=== PATIENT | male | born 1960 | race Two or more races ===

== ENCOUNTER 2017-08-27 19:34 | Inpatient (IN) | payer OTHER ==
[~2017-08-27] VITALS: Ht 177.8 cm; Wt 76.2 kg
--- NOTE | 2017-08-27 19:36 | NUR ---
PT BIBRA FROM SNF TO ER BED 10. SENT BY PMD FOR ABNORMAL LABS. PT IS VENT PT W/ CURRENT SETTINGS AC 14 TV 550 FI02 40% PEEP 5. G TUBE NOTED. F/C NOTED. PLACED ON MONITOR W/ STABLE VITALS. AWAITING MD MARSHALL.
[2017-08-27 20:00] VITALS: BP 153/81
--- NOTE | 2017-08-27 20:23 | NUR ---
RADIOLOGY AT BEDSIDE FOR CHEST XRAY.
--- NOTE | 2017-08-27 20:30 | NUR ---
DR BLANTON AT BEDSIDE FOR EVAL.
[2017-08-27 20:35] LABS: BASOPHILS # (AUTO) 0.3 /CMM (0.0-0.2); EOSINOPHILS # (AUTO) 1.7 /CMM (0.0-0.7); EOSINOPHILS % (AUTO) 6.2 % (0.0-6.0); HEMATOCRIT 29 % (39-51); HEMOGLOBIN 10.3 g/dL (13.5-17.5); LYMPHOCYTES # (AUTO) 2.7 /CMM (0.8-4.8); LYMPHOCYTES % (AUTO) 9.7 % (20.0-44.0); MEAN CORPUSCULAR HEMOGLOBIN 31 PG (26.0-33.0); MEAN CORPUSCULAR HGB CONC 35 g/dl (31.0-36.0); MEAN CORPUSCULAR VOLUME 88 fL (80-96); MONOCYTES % (AUTO) 7.4 % (2.0-12.0); NEUTROPHILS % (AUTO) 75.7 % (43.0-81.0); RDW COEFFICIENT OF VARIATION 15.1 (11.5-15.0); RED BLOOD CELL COUNT(AUTO) 3.32 MIL/uL (4.5-6.0); WHITE BLOOD COUNT (AUTO) 27.7 K/uL (4.3-11.0)
[2017-08-27 20:37] LABS: PLATELET COUNT (AUTO) 948 /CMM (150-450)
--- NOTE | 2017-08-27 20:40 | NUR ---
ABG IN PROGRESS PER RT
[2017-08-27] MEDS ORDERED: IBUP-1481 PO (20:44)
[2017-08-27] MEDS ORDERED: IPRA0.2S49 NEB (20:44)
[2017-08-27] MEDS ORDERED: CHLO473M3 PO (20:44)
[2017-08-27] MEDS ORDERED: BISA-79 PR (20:44)
[2017-08-27] MEDS ORDERED: VALP250S3 GT (20:44)
[2017-08-27] MEDS ORDERED: ZINC220C8 GT (20:44)
[2017-08-27] MEDS ORDERED: ALBU2.5V13 NEB (20:44)
[2017-08-27] MEDS ORDERED: LABE200T GT (20:44)
[2017-08-27] MEDS ORDERED: MULT1TAB73 GT (20:44)
[2017-08-27] MEDS ORDERED: MERO1VIA3 IV (20:44)
[2017-08-27] MEDS ORDERED: DOCU-25 GT (20:44)
[2017-08-27] MEDS ORDERED: AMLO10TA4 GT (20:44)
[2017-08-27] MEDS ORDERED: CRAN425C GT (20:44)
[2017-08-27] MEDS ORDERED: MAGN2400 GT (20:44)
[2017-08-27] MEDS ORDERED: ASCO500T9 GT (20:44)
[2017-08-27] MEDS ORDERED: VANC125C11 PO (20:44)
[2017-08-27] MEDS ORDERED: LEVO100T9 GT (20:44)
[2017-08-27] MEDS ORDERED: NA P133E RC (20:44)
[2017-08-27] MEDS ORDERED: PANT40TA2 GT (20:44)
[2017-08-27] MEDS ORDERED: ACET-868 GT (20:44)
[2017-08-27] MEDS ORDERED: LACT1CAP61 GT (20:44)
[2017-08-27 20:49] LABS: ABG BASE EXCESS 1.4 mmol/L; ABG OXYGEN SATURATION 98.7 % (92.0-98.5); ABG PCO2 33.3 mmHg (35.0-45.0); ABG PH 7.485 (7.350-7.450); ABG PO2 187.6 mmHg (75.0-100.0); AaDO2 59.3 mmHg; COHb 0.3 % (0.5-1.5); MetHb 0.7 % (0.0-1.5); O2Hb 97.7 % (94.0-97.0); PEEP,BG 5 cm H2O; SITE, ABG Right Brachial; VENT MODE, BG A/C; VT, ABG 550 mL
[2017-08-27 20:49] LABS: CALCIUM, SERUM 10.5 mg/dL (8.5-10.1); CARBON DIOXIDE 28 mmol/L (21-32); CHLORIDE 97 mmol/L (98-107); CREATININE 1.2 mg/dL (0.6-1.3); GLUCOSE 109 mg/dL (74-106); SODIUM SERUM 133 mmol/L (136-145); UREA NITROGEN, BLOOD 71 mg/dL (7-18)
[2017-08-27 20:53] LABS: TROPONIN I < 0.017 ng/mL (0.00-0.056)
[2017-08-27 20:55] LABS: ALANINE AMINOTRANSFERASE 70 U/L (12-78); ALBUMIN 2.6 g/dL (3.4-5.0); ALKALINE PHOSPHATASE 139 U/L (46-116); ASPARTATE AMINOTRANSFERASE 60 U/L (15-37); BILIRUBIN,DIRECT 0.2 mg/dL (0.0-0.2); BILIRUBIN,TOTAL 0.7 mg/dL (0.2-1.0); TOTAL PROTEIN, SERUM 7.3 g/dL (6.4-8.2)
[2017-08-27 20:56] LABS: INR 1.01 (0.87-1.13); PROTHROMBIN TIME 10.5 SECS (9.5-12.7)
[2017-08-27] MEDS ORDERED: IV NS 0.9% 1,000 ML BAG IV ONE (21:00)
[2017-08-27] MEDS ORDERED: VANCOMYCIN 1 GM in IV D5W 250 ML IV ONE (21:00)
[2017-08-27] MEDS ORDERED: MEROPENEM 500 MG in IV NS 0.9% 50 ML IV ONE (21:00)
[2017-08-27 21:08] LABS: EOSINOPHILS % (MANUAL) 4 % (0-4); LYMPHOCYTES % (MANUAL) 14 % (16-48); MONOCYTES % (MANUAL) 6 % (0-11.0); NEUTROPHILS % (MANUAL) 76 (42-76)
--- NOTE | 2017-08-27 21:39 | NUR ---
PAGED SPECIAL NEEDS BUS DRIVER PANEL, CLIVE SANCHEZ
[2017-08-27] MEDS ORDERED: MEROPENEM 500 MG VIAL IV ONE (21:48)
--- NOTE | 2017-08-27 21:51 | NUR ---
REPAGED CLIVE SANCHEZ
[2017-08-27] MEDS ORDERED: BISACODYL (5 MG) 5 MG TABLET.DR GT PRN (22:00)
[2017-08-27] MEDS ORDERED: ALBUTEROL FS 2.5 MG/0.5 ML VIAL.NEB NEB PRN (22:00)
[2017-08-27] MEDS ORDERED: IPRATROPIUM NEB FS 0.5 MG/2.5 ML AMPUL.NEB NEB PRN (22:00)
[2017-08-27] MEDS ORDERED: VANCOMYCIN 500 MG VIAL ONE (22:15)
[2017-08-27 22:30] LABS: ABG BASE EXCESS -0.7 mmol/L; ABG OXYGEN SATURATION 98.6 % (92.0-98.5); ABG PCO2 32.7 mmHg (35.0-45.0); ABG PO2 188.9 mmHg (75.0-100.0); AaDO2 58.7 mmHg; COHb 0.3 % (0.5-1.5); MetHb 0.7 % (0.0-1.5); O2Hb 97.6 % (94.0-97.0); PEEP,BG 5 cm H2O; SITE, ABG Right Radial; VT, ABG 550 mL
[2017-08-27] MEDS ORDERED: ONDANSETRON HCL/PF 4 MG/2 ML VIAL IVP PRN (22:30)
[2017-08-27 22:31] VITALS: BP 164/88
--- NOTE | 2017-08-27 22:40 | NUR ---
report given to marilyn. pt awaiting transfer to floor.
[2017-08-27] MEDS ORDERED: POTASSIUM CL. PREMIX PERIPHER. 100 ML ONE (22:42)
[2017-08-27 22:46] LABS: APPEARANCE,URINE CLOUDY (CLEAR); BILIRUBIN,URINE NEGATIVE (NEGATIVE); BLOOD, URINE 2+ Ery/uL (NEGATIVE); COLOR,URINE YELLOW (YELLOW); KETONES,URINE NEGATIVE (NEGATIVE); LEUKOCYTE ESTERASE ,URINE 1+ (NEGATIVE); NITRITE, URINE NEGATIVE (NEGATIVE); PROTEIN,URINE 2+ mg/dl (NEGATIVE); UGLUCOSE NEGATIVE (NEGATIVE); UROBILINOGEN,URINE 0.2 EU/dL (0.2)
[2017-08-27 22:53] LABS: BACTERIA,URINE Moderate /HPF (None Seen); SQUAMOUS EPITHELIAL CELL,UR Many /HPF (None Seen)
[2017-08-27 22:54] LABS: URINE AMORPHOUS URATE Moderate /HPF (None Seen); YEAST,URINE Few /HPF (None Seen)
--- NOTE | 2017-08-27 22:59 | NUR ---
RT CALLED FOR TRANSPORT TO FLOOR
[2017-08-27] MEDS: POTASSIUM CL. PREMIX PERIPHER. 50 ML IV SCH (23:11)
--- NOTE | 2017-08-27 23:11 | NUR ---
TELEPHONE ORDERS FROM DR. BLANTON TO ENDORSE KCL DRIP ON FLOOR; UTILITY AIDE AWARE KCL DOSE NOT AVAILABLE IN ER, BUT AVAILABLE ON FLOOR.
[2017-08-27] MEDS ORDERED: CHLORHEXIDINE GLUCONATE 15 ML UDC MM ONE (23:53)
[2017-08-27] MEDS ORDERED: HEPARIN SODIUM, PORCINE 5000 UNITS/1 ML VIAL ONE (23:53)
[2017-08-27] MEDS ORDERED: LABETALOL HCL (100MG) 100 MG TABLET ONE (23:54)
[2017-08-27] MEDS: CHLORHEXIDINE GLUCONATE 15 ML UDC MM SCH (23:57)
[2017-08-27] MEDS: IV NS 0.9% 1,000 ML IV PRN (23:58)
[2017-08-27] MEDS: LABETALOL HCL (100MG) 100 MG TABLET GT SCH (23:59)
[2017-08-28] VITALS (8 sets, daily range): BP systolic 146–168; BP diastolic 74–85
[2017-08-28] MEDS ORDERED: POTASSIUM CL. PREMIX PERIPHER. 100 ML ONE (00:29)
[2017-08-28] MEDS: POTASSIUM CL. PREMIX PERIPHER. 50 ML IV SCH ×5 (00:41→03:27)
--- NOTE | 2017-08-28 01:54 | NUR ---
RN NOTE. ADMISSION. RECEIVED THE PT FROM ER VIA [facility] ROOM 101. ADMITTED FOR SEPSIS. PT AWAKE, ALERT, NONVERBAL. TRACH TO VENT CONNECTED. AC 14,TV550, FIO2 40%, PEEP 5, SAT 97%. NO ACUTE DISTRESS NOTED. BILLPOSTING SUPERVISOR SHOWING NSR. IV RT HAND 18G. IVF NS 75ML/H, FC PATENT. URINE DRAINING, GT CLAMPED. SACRAL WOUND DRESSING DONE. HOB ELEVATED, TURN AND RE POSITION Q2H. WILL CONTINUE TO MONITOR VITALS.
[2017-08-28 02:42] LABS: BASOPHILS % (AUTO) 0.1 % (0.0-2.0); EOSINOPHILS # (AUTO) 1.4 /CMM (0.0-0.7); EOSINOPHILS % (AUTO) 6.1 % (0.0-6.0); HEMATOCRIT 26 % (39-51); HEMOGLOBIN 8.7 g/dL (13.5-17.5); LYMPHOCYTES # (AUTO) 2.2 /CMM (0.8-4.8); LYMPHOCYTES % (AUTO) 9.4 % (20.0-44.0); MEAN CORPUSCULAR HEMOGLOBIN 30 PG (26.0-33.0); MEAN CORPUSCULAR HGB CONC 33 g/dl (31.0-36.0); MEAN CORPUSCULAR VOLUME 89 fL (80-96); MONOCYTES # (AUTO) 2.1 /CMM (0.1-1.30); MONOCYTES % (AUTO) 8.8 % (2.0-12.0); NEUTROPHILS % (AUTO) 75.6 % (43.0-81.0); PLATELET COUNT (AUTO) 798 /CMM (150-450); RDW COEFFICIENT OF VARIATION 15.6 (11.5-15.0); RED BLOOD CELL COUNT(AUTO) 2.95 MIL/uL (4.5-6.0); WHITE BLOOD COUNT (AUTO) 23.8 K/uL (4.3-11.0)
[2017-08-28 02:55] LABS: ALBUMIN 2.3 g/dL (3.4-5.0); BILIRUBIN,TOTAL 0.7 mg/dL (0.2-1.0); CALCIUM, SERUM 9.9 mg/dL (8.5-10.1); CREATININE 1.1 mg/dL (0.6-1.3); MAGNESIUM 1.6 mg/dL (1.8-2.4); PHOSPHORUS 3.1 mg/dL (2.5-4.9); POTASSIUM 3.3 mmol/L (3.5-5.1); TOTAL PROTEIN, SERUM 6.5 g/dL (6.4-8.2)
[2017-08-28 02:59] LABS: BAND % (MANUAL) 2 % (0.0-5.0); EOSINOPHILS % (MANUAL) 10 % (0-4); LYMPHOCYTES % (MANUAL) 8 % (16-48); MONOCYTES % (MANUAL) 10 % (0-11.0); NEUTROPHILS % (MANUAL) 70 (42-76)
[2017-08-28 03:06] LABS: THYROID STIMULATING HORMONE 2.642 uIU/mL (0.358-3.74)
--- NOTE | 2017-08-28 03:15 | NUR ---
WILL CONTINUE TO MONITOR. Addendum: 08/28/17 at 0315 by FIDEL MENDOZA RN Amended: Links added.
--- NOTE | 2017-08-28 03:24 | NUR ---
VANCOCIN NOT GIVEN, NOT IN THE FIXES
--- NOTE | 2017-08-28 03:29 | NUR ---
AM CARE, ORAL CARE, BED BATH GIVEN. LINEN CHANGED, REMAINING SAME VENT SETTING TOLERATED WELL. SAT 98%. NO ACUTE DISTRESS NOTED. CLINICAL ACCOUNT EXECUTIVE SHOWING NSR, IV RT HAND 18G, IVF NS 75ML/H, FC PATENT, URINE DRAINING. NPO, GT CLAMPED. HOB ELEVATED. TURN AND REPOSITION Q2H.
[2017-08-28] MEDS ORDERED: LABETALOL HCL (100MG) 100 MG TABLET ONE (05:13)
[2017-08-28] MEDS ORDERED: VALPROIC ACID 250 MG/5 ML UDC ONE (05:13)
[2017-08-28] MEDS ORDERED: MEROPENEM 1 G VIAL IV ONE (05:13)
[2017-08-28] MEDS: MEROPENEM 1 G in IV NS 0.9% 100 ML IV SCH ×3 (05:21→20:57)
[2017-08-28] MEDS: LABETALOL HCL (100MG) 100 MG TABLET GT SCH ×4 (05:22→23:31)
[2017-08-28] MEDS: VALPROIC ACID 250 MG/5 ML UDC GT SCH ×3 (05:22→20:57)
[2017-08-28] MEDS: VANCOMYCIN HCL 125 MG CAPSULE PO SCH ×2 (06:00)
--- NOTE | 2017-08-28 06:13 | NUR ---
VANCOCIN NOT IN THE FIXES.
[2017-08-28 07:43] LABS: MAGNESIUM 1.6 mg/dL (1.8-2.4); POTASSIUM 2.9 mmol/L (3.5-5.1)
[2017-08-28] MEDS ORDERED: FEE PK DOSING 1 MIN EA MC ONE (08:14)
[2017-08-28] MEDS: LEVOTHYROXINE SODIUM 100 MCG TABLET GT SCH (08:40)
[2017-08-28] MEDS: AMLODIPINE BESYLATE 10 MG TABLET GT SCH (08:40)
[2017-08-28] MEDS: ASCORBIC ACID 500 MG TABLET GT SCH (08:41)
[2017-08-28] MEDS: VANCOMYCIN 0.75 GM in IV D5W 250 ML IV SCH ×3 (08:41→23:31)
[2017-08-28] MEDS: ASPIRIN 81 MG TAB.CHEW GT SCH ×2 (08:41→08:44)
[2017-08-28] MEDS: CHLORHEXIDINE GLUCONATE 15 ML UDC MM SCH ×2 (08:41→20:57)
[2017-08-28] MEDS: HEPARIN SODIUM, PORCINE 5000 UNITS/1 ML VIAL SQ SCH ×3 (08:44→20:59)
--- NOTE | 2017-08-28 08:45 | NUR ---
WOUND CARE CONSULT: PT PRESENTS WITH STAGE 4 ULCER TO SACRUM AND INTACT DEEP TISSUE INJURIES TO HEELS, PRESENT ON ADMISSION. PT IS IMMOBILE, VENT DEPENDENT. RECOMMENDATIONS MADE FOR SKIN PROTECTION AND WOUND CARE. DISCUSSED WITH NURSING STAFF. SURGICAL CONSULT RECOMMENDED. FIRST STEP MATTRESS ORDERED. ALL SKIN PROTECTION MEASURES IN PLACE. WILL SEE PRN. DAVIS IN AGREEMENT WITH PLAN OF CARE. Addendum: 08/28/17 at 0846 by AVRIL POLLACK WNDNU Amended: Links added.
[2017-08-28] MEDS ORDERED: HYDROGEL DRESSING 90 GM TUBE TP PRN (09:00)
--- NOTE | 2017-08-28 10:37 | NUR ---
STEVEN RN NOTE 0720: Received patient awake, alert to name and able to answer yes/no by nodding. With trache to vent, tolerated settings well. No respiratory distress noted at this time. GT intact, will F/U for GT feeding order. Kept HOB elevated. NSR 60's on the monitor. RH PIV intact, IVF infusing as ordered. 0815: S/E by wound nurse, with new orders noted. 0930: Spoke with via phone, aware for patient's condition. 1000: S/E by Support Services Tech, will start on Novasource @ 40. 1030: Followed up with the pharmacy re: Vancocin x3, still not available.
[2017-08-28] MEDS: Magnesium 1GM/D5W 100ML PREMIX 100 ML IV SCH ×2 (11:05→12:29)
[2017-08-28] MEDS: HYDROGEL DRESSING 90 GM TUBE TP SCH (11:05)
[2017-08-28] MEDS: VANCOMYCIN HCL 125 MG/2.5 ML ORAL.SUSP PO SCH ×4 (11:05→20:57)
[2017-08-28] MEDS: Potassium Chloride 10 MEQ in IV D5W 50 ML IV SCH ×6 (12:29→17:19)
[2017-08-28] MEDS: RENAL NOVASOURCE 1,000 ML BOTTLE GT PRN (15:09)
[2017-08-28] MEDS: IV NS 0.9% 1,000 ML IV PRN (18:13)
--- NOTE | 2017-08-28 18:41 | NUR ---
STEVEN RN NOTE No any significant changes noted. Remained afebrile. PIV intact. IVF infusing well. S/E by ID, no new order at this time. Kept clean, warm and dry. Needs attended. Placed on KCI mattress. Turned q2. Will endorse to next shift.
--- NOTE | 2017-08-28 20:00 | NUR ---
CLAIM REP; Received patient awake, alert to name and able to answer yes/no by nodding. With trache to vent, tolerated settings well. No respiratory distress noted at this time. GT feeding Novasource at 40 ml/hr, no residual. Kept HOB elevated. NSR 70-80's on the monitor. RH PIV intact, IVF infusing as ordered. Keep monitoring....
[2017-08-29] VITALS: BP 159/80
[2017-08-29 04:00] VITALS: BP 148/71
[2017-08-29] MEDS: VALPROIC ACID 250 MG/5 ML UDC GT SCH ×3 (05:11→21:04)
[2017-08-29] MEDS: MEROPENEM 1 G in IV NS 0.9% 100 ML IV SCH ×3 (05:11→21:04)
[2017-08-29] MEDS: LABETALOL HCL (100MG) 100 MG TABLET GT SCH ×3 (05:12→17:26)
--- NOTE | 2017-08-29 06:58 | NUR ---
WARPMAN: PT BEING STABLE THE WHOLE SHIFT. v/s STABLE. nOT SIGNIFICANT CHANGES NOTED. WILL ENDORSE CARE TO NEXT SHIFT.
[2017-08-29 07:51] LABS: CALCIUM, SERUM 9.5 mg/dL (8.5-10.1); CREATININE 1.1 mg/dL (0.6-1.3); MAGNESIUM 1.8 mg/dL (1.8-2.4); PHOSPHORUS 2.7 mg/dL (2.5-4.9); POTASSIUM 3.7 mmol/L (3.5-5.1)
[2017-08-29 07:52] LABS: BASOPHILS # (AUTO) 0.2 /CMM (0.0-0.2); BASOPHILS % (AUTO) 0.7 % (0.0-2.0); EOSINOPHILS % (AUTO) 8.1 % (0.0-6.0); HEMATOCRIT 27 % (39-51); HEMOGLOBIN 9.1 g/dL (13.5-17.5); LYMPHOCYTES # (AUTO) 2.2 /CMM (0.8-4.8); MEAN CORPUSCULAR HEMOGLOBIN 30 PG (26.0-33.0); MEAN CORPUSCULAR HGB CONC 34 g/dl (31.0-36.0); MEAN CORPUSCULAR VOLUME 90 fL (80-96); MONOCYTES # (AUTO) 2.2 /CMM (0.1-1.30); MONOCYTES % (AUTO) 8.8 % (2.0-12.0); NEUTROPHILS # (AUTO) 18.1 /CMM (1.8-8.9); NEUTROPHILS % (AUTO) 73.4 % (43.0-81.0); PLATELET COUNT (AUTO) 740 /CMM (150-450); RDW COEFFICIENT OF VARIATION 16.5 (11.5-15.0); RED BLOOD CELL COUNT(AUTO) 3.03 MIL/uL (4.5-6.0); WHITE BLOOD COUNT (AUTO) 24.7 K/uL (4.3-11.0)
[2017-08-29 08:00] VITALS: BP 160/77
[2017-08-29] MEDS: VANCOMYCIN 0.75 GM in IV D5W 250 ML IV SCH (08:00)
[2017-08-29] MEDS: LEVOTHYROXINE SODIUM 100 MCG TABLET GT SCH (08:26)
[2017-08-29] MEDS: CHLORHEXIDINE GLUCONATE 15 ML UDC MM SCH ×2 (08:26→21:04)
[2017-08-29] MEDS: ASPIRIN 81 MG TAB.CHEW GT SCH (08:26)
[2017-08-29] MEDS: VANCOMYCIN HCL 125 MG/2.5 ML ORAL.SUSP PO SCH ×4 (08:26→21:04)
[2017-08-29] MEDS: ASCORBIC ACID 500 MG TABLET GT SCH (08:26)
[2017-08-29] MEDS: AMLODIPINE BESYLATE 10 MG TABLET GT SCH (08:27)
[2017-08-29] MEDS: HYDROGEL DRESSING 90 GM TUBE TP SCH (08:27)
[2017-08-29] MEDS: HEPARIN SODIUM, PORCINE 5000 UNITS/1 ML VIAL SQ SCH ×2 (08:28→21:05)
--- NOTE | 2017-08-29 11:09 | NUR ---
STEVEN RN NOTE 0720: Received patient awake, A?Ox1, able to answer yes/no questions by nodding. With trache to vent, tolerated settings well. With GT intact, feeding tolerated. No residuals. Kept HOB elevated. With Campos cath intact, noted with yellow urine with sediments. PIV intact, IVF infusing as ordered. On ATB therapy for high WBC, no any adcverse reactions from ATB therapy, will continue to monitor. Still noted with high WBC today, remained afebrile. 1100: No any significant changes noted at this time. Kept clean, warm and dry. Needs attended.
[2017-08-29] MEDS: IV NS 0.9% 1,000 ML IV PRN (11:41)
[2017-08-29 12:00] VITALS: BP 156/78
--- NOTE | 2017-08-29 14:30 | NUR ---
Patient resides at [facility] [phone], he is trach/vent dependent. Totally dependent with adl's. Plan is to dc back to [facility] once discharge. Addendum: 08/29/17 at 1431 by ALFREDO SANCHEZ RN Amended: Links added.
--- NOTE | 2017-08-29 14:59 | NUR ---
STEVEN RN NOTE 1300: S/E by Fazal GRECO and made aware for WBC still high, said she will start on Diflucan. Awaiting ID round today. Afebrile. Made LITIGATION ASSOCIATE aware re: wound nurse rec for Sx con uslt for Sacral full thickness loss. 1450: MAde LITIGATION ASSOCIATE aware on the unit re: MRSA nares +, placved on isolation prec and obtained order for Bactroban oint.
[2017-08-29] MEDS: RENAL NOVASOURCE 1,000 ML BOTTLE GT PRN (15:29)
[2017-08-29 16:00] VITALS: BP 150/78
[2017-08-29] MEDS ORDERED: FLUCONAZOLE IN NS 100 MG in PREMIX 1 EA IV SCH ×2 (16:00)
[2017-08-29] MEDS: IBUPROFEN 400 MG TABLET GT PRN (16:05)
--- NOTE | 2017-08-29 17:55 | NUR ---
STEVEN RN NOTE Sandoval tr 26, held dose per level, made pharmacy aware.
[2017-08-29] MEDS ORDERED: VANCOMYCIN 0.75 GM in IV D5W 250 ML IV SCH (18:00)
--- NOTE | 2017-08-29 18:30 | NUR ---
STEVEN RN NOTE No any significant changes noted at this time. remained afebrile. Kept clean, warm and dry. Needs attended. Isolation prec maintained and observed. Trache to vent, no respiratory distress noted. With GT intact, feeding tolerated. Kept HOB elevated. Started on diflucan today, no any adverse reactions from ATB and anti fungal therapy, will continue to monitor.
--- NOTE | 2017-08-29 19:30 | NUR ---
TD RN RCD PT WITH DX SEPSIS; PT IS AWAKE NOT FOLLOWING COMMANDS AT THIS TIME. SINUS RUFUS ON MONITOR. GTUBE WITH NOVASOURCE AT 40 ML/HR NO RESIDUAL AT THIS TIME. FRANZ CATHETER DRAINING ADEQUATE AMOUNT OF YELLOW CLEAR URINE. NS @ 75 ML/HR VIA RIGHT HAND 18 G. PT REPOSITIONED. CONTINUE TO MONITOR.
[2017-08-29 20:00] VITALS: BP 160/75
[2017-08-29] MEDS: MUPIROCIN OINT 2% 22 GM TUBE SCH (21:04)
--- NOTE | 2017-08-29 23:30 | NUR ---
TD RN RCD CALL FROM UPDATED ON PLAN OF CARE.
[2017-08-30] VITALS: BP 144/71
[2017-08-30] MEDS: LABETALOL HCL (100MG) 100 MG TABLET GT SCH ×4 (00:13→17:03)
[2017-08-30 04:00] VITALS: BP 151/76
[2017-08-30] MEDS: VALPROIC ACID 250 MG/5 ML UDC GT SCH ×3 (05:25→21:53)
[2017-08-30] MEDS: MEROPENEM 1 G in IV NS 0.9% 100 ML IV SCH ×3 (05:25→21:53)
[2017-08-30] MEDS: IV NS 0.9% 1,000 ML IV PRN ×2 (05:28→21:54)
[2017-08-30] MEDS ORDERED: VANCOMYCIN 0.75 GM in IV D5W 250 ML IV SCH (06:00)
--- NOTE | 2017-08-30 06:35 | NUR ---
TD RN COMPLETE BED BATH RENDERED; ORAL CARE PROVIDED. PT REPOSITIONED Q2HRS. VSS. CONTINUE TO MONITOR.
--- NOTE | 2017-08-30 06:45 | NUR ---
MAURILIO HOWELL NOT ADMINISTERED AT THIS TIME; PENDING LEVEL. WILL ENDORSE TO NEXT SHIFT.
[2017-08-30 06:47] LABS: BASOPHILS # (AUTO) 0.1 /CMM (0.0-0.2); BASOPHILS % (AUTO) 0.6 % (0.0-2.0); EOSINOPHILS # (AUTO) 2.6 /CMM (0.0-0.7); EOSINOPHILS % (AUTO) 11.3 % (0.0-6.0); HEMATOCRIT 29 % (39-51); HEMOGLOBIN 9.8 g/dL (13.5-17.5); LYMPHOCYTES # (AUTO) 1.7 /CMM (0.8-4.8); LYMPHOCYTES % (AUTO) 7.6 % (20.0-44.0); MEAN CORPUSCULAR HEMOGLOBIN 31 PG (26.0-33.0); MEAN CORPUSCULAR HGB CONC 34 g/dl (31.0-36.0); MEAN CORPUSCULAR VOLUME 90 fL (80-96); MONOCYTES # (AUTO) 2.1 /CMM (0.1-1.30); MONOCYTES % (AUTO) 8.9 % (2.0-12.0); NEUTROPHILS # (AUTO) 16.5 /CMM (1.8-8.9); NEUTROPHILS % (AUTO) 71.6 % (43.0-81.0); PLATELET COUNT (AUTO) 603 /CMM (150-450); RDW COEFFICIENT OF VARIATION 16.3 (11.5-15.0); WHITE BLOOD COUNT (AUTO) 23.1 K/uL (4.3-11.0)
[2017-08-30 06:57] LABS: CALCIUM, SERUM 9.6 mg/dL (8.5-10.1); MAGNESIUM 1.6 mg/dL (1.8-2.4); PHOSPHORUS 2.8 mg/dL (2.5-4.9); POTASSIUM 3.4 mmol/L (3.5-5.1)
--- NOTE | 2017-08-30 07:18 | NUR ---
RN INITIAL NOTES: REC'D PT ALERT, NOT IN ANY DISTRESS. ON MECH VENT VIA TRACH, NO SOB. ON TELEMONITOR, SR. HAS PATENT & INTACT IV ACCESS W/ NS 75 CC/HR INFUSING WELL, NO S/SX OF INFECTION/INFILTRATION NOTED. HAS PATENT & INTACT PEG, ON CONT TUBE FEEDING, NO RESIDUAL NOTED UPON CHECKING. HAS FC DRAINING TO ADEQUATE URINE OUTPUT. PROVIDED COMFORT & SAFETY MEASURES. BED KEPT LOW & IN LOCKED POS. CALL LIGHT PLACED W/IN REACH. WILL CONTINUE TO MONITOR AND ATTEND PT NEEDS.
[2017-08-30 08:00] VITALS: BP 168/82
[2017-08-30] MEDS: ASCORBIC ACID 500 MG TABLET GT SCH (08:30)
[2017-08-30] MEDS: ASPIRIN 81 MG TAB.CHEW GT SCH (08:30)
[2017-08-30] MEDS: AMLODIPINE BESYLATE 10 MG TABLET GT SCH (08:30)
[2017-08-30] MEDS: LEVOTHYROXINE SODIUM 100 MCG TABLET GT SCH (08:30)
[2017-08-30] MEDS: VANCOMYCIN HCL 125 MG/2.5 ML ORAL.SUSP PO SCH (08:31)
[2017-08-30] MEDS: HYDROGEL DRESSING 90 GM TUBE TP SCH (08:31)
[2017-08-30] MEDS: Z GUARD REMEDY 2 OZ OINT TP PRN (08:31)
[2017-08-30] MEDS: HEPARIN SODIUM, PORCINE 5000 UNITS/1 ML VIAL SQ SCH ×2 (08:37→21:55)
[2017-08-30] MEDS: MUPIROCIN OINT 2% 22 GM TUBE SCH ×2 (09:17→21:55)
[2017-08-30] MEDS: CHLORHEXIDINE GLUCONATE 15 ML UDC MM SCH ×2 (10:45→21:57)
[2017-08-30] MEDS ORDERED: POTASSIUM CHLORIDE 20 MEQ POWDER PACKET GT SCH (11:30)
[2017-08-30 12:00] VITALS: BP 147/85
[2017-08-30] MEDS: Magnesium 1GM/D5W 100ML PREMIX 100 ML IV SCH ×2 (12:42→14:29)
[2017-08-30 16:00] VITALS: BP 161/85
[2017-08-30] MEDS: LACTOBACILLUS RHAMNOSUS GG 1 EACH CAP.SPRINK PO SCH (17:03)
[2017-08-30 18:19] LABS: APPEARANCE,URINE CLOUDY (CLEAR); BILIRUBIN,URINE NEGATIVE (NEGATIVE); BLOOD, URINE 3+ Ery/uL (NEGATIVE); COLOR,URINE YELLOW (YELLOW); KETONES,URINE NEGATIVE (NEGATIVE); LEUKOCYTE ESTERASE ,URINE NEGATIVE (NEGATIVE); NITRITE, URINE NEGATIVE (NEGATIVE); PH,URINE 6.5 (5.0-8.0); PROTEIN,URINE 2+ mg/dl (NEGATIVE); UGLUCOSE NEGATIVE (NEGATIVE); UROBILINOGEN,URINE 0.2 EU/dL (0.2)
[2017-08-30 18:38] LABS: RBC,URINE 21-50 /HPF (0-2)
[2017-08-30 18:40] LABS: BACTERIA,URINE Moderate /HPF (None Seen); SQUAMOUS EPITHELIAL CELL,UR Few /HPF (None Seen)
[2017-08-30 18:41] LABS: YEAST,URINE Many /HPF (None Seen)
--- NOTE | 2017-08-30 19:00 | NUR ---
RN CLOSING NOTES: NO ACUTE CHANGES NOTED W/IN SHIFT. PT TOLERATED MECH VENT VIA TRACH, SATING 100%. ON TELEMONITOR, STILL SR. IV LINE KEPT PATENT & INTACT W/ NS 75 CC/HR INFUSING WELL, NO S/SX OF INFECTION/INFILTRATION NOTED. PEG KEPT PATENT & INTACT, TUBE FEEDING TOLERATED WELL, NO RESIDUAL W/IN SHIFT. FC KEPT INTACT. KEPT WELL RESTED. NEEDS ATTENDED. SUCTIONED SECRETIONS. WOUND CARE DONE. TURNED/REPOSITIONED. BED KEPT LOW & IN LOCKED POS. CALL LIGHT PLACED W/IN REACH. ENDORSED TO PM RN FOR AMIE.
--- NOTE | 2017-08-30 19:15 | NUR ---
RN INITIAL NOTES RECEIVED PATIENT IN BED, SLEEPING COMFORTABLY. PATIENT IS AROUSABLE WITH VERBAL AND TACTILE STIMULI, NO ACUTE DISTRESS AND NO DISCOMFORT NOTED. PATIENT IS ON MECH VENT VIA TRACH, C/D/I, MIDLINE. PATIENT IS SR, HR OF 80s. PATIENT WITH GTF, INFUSING WELL, NO GASTRIC RESIDUAL NOTED. IVF ORDERED ON PATIENT'S R HAND G18, FLUSHED AND PATENT, NO INFILTRATION NOTED. F/C IN PLACE, DRAINING WITH YELLOW URINE. PATIENT REPOSITIONED FOR COMFORT. SAFETY ENSURED. HOB ELEVATED. WILL MONITOR CLOSELY.
[2017-08-30 20:00] VITALS: BP 145/75
--- NOTE | 2017-08-30 20:45 | NUR ---
RN NOTES PATIENT'S CALLED AND URGENTLY ASKED TO SPEAK WITH THE DRY CLEANER HAND IN AM REGARDING PATIENT'S POSSIBLE PLACEMENT CLOSE TO THEIR HOME. REASSURED NEEDED. WILL ENDORSE ACCORDINGLY FOR CM TO F/UP.
[2017-08-30] MEDS: RENAL NOVASOURCE 1,000 ML BOTTLE GT PRN (21:53)
[2017-08-30] MEDS: VANCOMYCIN 0.75 GM in IV D5W 250 ML IV SCH (21:54)
[2017-08-31] VITALS: BP 139/77
[2017-08-31] MEDS: LABETALOL HCL (100MG) 100 MG TABLET GT SCH ×5 (00:06→23:13)
[2017-08-31 04:00] VITALS: BP 151/82
[2017-08-31] MEDS: MEROPENEM 1 G in IV NS 0.9% 100 ML IV SCH ×3 (05:12→21:33)
[2017-08-31] MEDS: VALPROIC ACID 250 MG/5 ML UDC GT SCH ×3 (05:13→21:29)
--- NOTE | 2017-08-31 06:32 | NUR ---
RN CLOSING NOTES PATIENT WITH NO ACUTE DISTRESS OBSERVED OVERNIGHT. PATIENT TOLERATED GTF WELL, NO GASTRIC RESIDUAL NOTED. IVF ORDERED. ALL DUE MEDS GIVEN ORDERED. WOUND TREATMENT RENDERED ORDERED. TRACH CARE DONE. PATIENT TURNED AND REPOSITIONED [id number] AND PRN. PATIENT KEPT CLEAN AND DRY. F/C INTACT. SAFETY AND COMFORT ENSURED. BED IN LOW AND LOCKED POSITION. WILL ENDORSE ACCORDINGLY FOR CONTINUITY OF CARE.
[2017-08-31 07:01] LABS: BASOPHILS # (AUTO) 0.1 /CMM (0.0-0.2); BASOPHILS % (AUTO) 0.2 % (0.0-2.0); EOSINOPHILS # (AUTO) 3.2 /CMM (0.0-0.7); EOSINOPHILS % (AUTO) 11.5 % (0.0-6.0); HEMATOCRIT 28 % (39-51); HEMOGLOBIN 9.6 g/dL (13.5-17.5); LYMPHOCYTES # (AUTO) 2.5 /CMM (0.8-4.8); LYMPHOCYTES % (AUTO) 9.1 % (20.0-44.0); MEAN CORPUSCULAR HEMOGLOBIN 31 PG (26.0-33.0); MEAN CORPUSCULAR HGB CONC 34 g/dl (31.0-36.0); MEAN CORPUSCULAR VOLUME 90 fL (80-96); MONOCYTES # (AUTO) 2.2 /CMM (0.1-1.30); MONOCYTES % (AUTO) 8.1 % (2.0-12.0); NEUTROPHILS # (AUTO) 19.5 /CMM (1.8-8.9); NEUTROPHILS % (AUTO) 71.1 % (43.0-81.0); PLATELET COUNT (AUTO) 550 /CMM (150-450); RDW COEFFICIENT OF VARIATION 16.3 (11.5-15.0); RED BLOOD CELL COUNT(AUTO) 3.13 MIL/uL (4.5-6.0); WHITE BLOOD COUNT (AUTO) 27.5 K/uL (4.3-11.0)
[2017-08-31 07:17] LABS: CALCIUM, SERUM 9.2 mg/dL (8.5-10.1); CREATININE 0.9 mg/dL (0.6-1.3); MAGNESIUM 1.8 mg/dL (1.8-2.4); PHOSPHORUS 2.2 mg/dL (2.5-4.9); POTASSIUM 3.3 mmol/L (3.5-5.1)
--- NOTE | 2017-08-31 07:30 | NUR ---
RN NOTES RECEIVED PATIENT ON [facility] VENT WITH BREATHING NORMAL, EVEN AND UNLABORED. NO SOB NOTED. VENT SETTING REVIEWED AND VERIFIED. TOLERATED WELL. NO ACUTE DISTRESS NOTED. TELE MONITOR REVEALS SR, HR=78. IV R HAND IS PATENT AND INTACT, RUNNING IVF PER ORDER. ON GT FEED NOVASOURCE @ 40CC/HR. TOLERATED WELL. NO RESIDUAL NOTED. ASPIRATION PRECAUTION TAKEN. HOB ELEVATED. F/C IS PATENT AND INTACT, DRAINING WITH GRAVITY. KEPT CLEAN, DRY AND COMFORTABLE. ALL NEEDS ATTENDED. SAFETY MEASURE OBSERVED. CALL LIGHT WITH IN REACH. WILL CONT TO MONITOR.
[2017-08-31 08:00] VITALS: BP 139/80
[2017-08-31] MEDS: LACTOBACILLUS RHAMNOSUS GG 1 EACH CAP.SPRINK PO SCH ×2 (08:38→17:10)
[2017-08-31] MEDS: AMLODIPINE BESYLATE 10 MG TABLET GT SCH (08:38)
[2017-08-31] MEDS: LEVOTHYROXINE SODIUM 100 MCG TABLET GT SCH (08:38)
[2017-08-31] MEDS: ASCORBIC ACID 500 MG TABLET GT SCH (08:38)
[2017-08-31] MEDS: ASPIRIN 81 MG TAB.CHEW GT SCH (08:39)
[2017-08-31] MEDS: HEPARIN SODIUM, PORCINE 5000 UNITS/1 ML VIAL SQ SCH ×2 (08:39→21:39)
[2017-08-31] MEDS: MUPIROCIN OINT 2% 22 GM TUBE SCH ×2 (08:41→21:30)
[2017-08-31] MEDS: HYDROGEL DRESSING 90 GM TUBE TP SCH (08:41)
[2017-08-31] MEDS: CHLORHEXIDINE GLUCONATE 15 ML UDC MM SCH ×2 (09:01→21:29)
[2017-08-31 12:00] VITALS: BP 148/75
[2017-08-31] MEDS: Potassium Chloride 10 MEQ in IV D5W 50 ML IV SCH ×2 (12:05→12:39)
[2017-08-31] MEDS ORDERED: NEUTRA PHOS 1 POWD.PACKET GT ONE (13:30)
[2017-08-31 16:00] VITALS: BP 165/79
[2017-08-31] MEDS: IV NS 0.9% 1,000 ML IV PRN (17:55)
--- NOTE | 2017-08-31 18:43 | NUR ---
RN NOTES PATIENT ENDORSED TO NEXT SHIFT IN STABLE CONDITION WITH BREATHING NORMAL, EVEN AND UNLABORED, NO SOB NOTED. NO ACUTE DISTRESS NOTED. KEPT CLEAN, DRY AND COMFORTABLE. ALL NEEDS ATTENDED. SAFETY MEASURE OBSERVED. CALL LIGHT WITH IN REACH. WILL CONT TO MONITOR.
--- NOTE | 2017-08-31 19:15 | NUR ---
RN INITIAL NOTES RECEIVED PATIENT IN BED, AROUSABLE WITH VERBAL AND TACTILE STIMULI, NO ACUTE DISTRESS AND NO DISCOMFORT NOTED. PATIENT IS ON MECH VENT VIA TRACH, C/D/I, MIDLINE. PATIENT IS SR, HR OF 70s. PATIENT WITH GTF, INFUSING WELL, MINIMAL GASTRIC RESIDUAL NOTED. IVF ORDERED ON PATIENT'S R HAND G18, FLUSHED AND PATENT, NO INFILTRATION NOTED. F/C IN PLACE, DRAINING WITH YELLOW URINE. PATIENT REPOSITIONED FOR COMFORT. SAFETY ENSURED. HOB ELEVATED. WILL MONITOR CLOSELY.
[2017-08-31 20:00] VITALS: BP 141/71
[2017-08-31] MEDS: VANCOMYCIN 0.75 GM in IV D5W 250 ML IV SCH (23:12)
[2017-09-01] VITALS: BP 150/75
[2017-09-01 04:00] VITALS: BP 126/63
[2017-09-01] MEDS: IV NS 0.9% 1,000 ML IV PRN (05:13)
[2017-09-01] MEDS: VALPROIC ACID 250 MG/5 ML UDC GT SCH ×3 (05:13→21:19)
[2017-09-01] MEDS: RENAL NOVASOURCE 1,000 ML BOTTLE GT PRN (05:13)
[2017-09-01] MEDS: LABETALOL HCL (100MG) 100 MG TABLET GT SCH ×3 (05:14→17:00)
[2017-09-01] MEDS: MEROPENEM 1 G in IV NS 0.9% 100 ML IV SCH ×2 (05:17→12:40)
--- NOTE | 2017-09-01 06:26 | NUR ---
RN CLOSING NOTES PATIENT WITH NO ACUTE CHANGE IN CONDITION OBSERVED OVERNIGHT. PATIENT STABLE, SR ON TELE WITH HR OF 60s. TOLERATED MECH VENT WELL, AIRWAY SUCTIONED NEEDED. GTF TOLERATED, NO GASTRIC RESIDUAL NOTED. IVF ORDERED. R HAND PIV WITH NO SIGNS OF INFILTRATION. F/C INTACT AND DRAINING WELL WITH CLOUDY, YELLOW URINE. WOUND CARE DONE, NO ACUTE BLEEDING NOTED. PATIENT KEPT CLEAN AND DRY. TURNED AND REPOSITIONED [id number] AND PRN FOR COMFORT. TRACH CARE DONE. AM LABS DRAWN. ALL DUE MEDS GIVEN ORDERED. PATIENT'S NEEDS ANTICIPATED AND MET. SAFETY AND COMFORT ENSURED. BED IN LOW AND LOCKED POSITION. WILL ENDORSE ACCORDINGLY FOR CONTINUITY OF CARE.
[2017-09-01 07:12] LABS: BASOPHILS # (AUTO) 0.1 /CMM (0.0-0.2); BASOPHILS % (AUTO) 0.5 % (0.0-2.0); EOSINOPHILS # (AUTO) 3.3 /CMM (0.0-0.7); HEMATOCRIT 24 % (39-51); HEMOGLOBIN 8.1 g/dL (13.5-17.5); LYMPHOCYTES # (AUTO) 2.4 /CMM (0.8-4.8); MEAN CORPUSCULAR HEMOGLOBIN 30 PG (26.0-33.0); MEAN CORPUSCULAR HGB CONC 34 g/dl (31.0-36.0); MEAN CORPUSCULAR VOLUME 90 fL (80-96); MONOCYTES # (AUTO) 2.3 /CMM (0.1-1.30); MONOCYTES % (AUTO) 9.5 % (2.0-12.0); NEUTROPHILS # (AUTO) 15.7 /CMM (1.8-8.9); PLATELET COUNT (AUTO) 475 /CMM (150-450); RED BLOOD CELL COUNT(AUTO) 2.67 MIL/uL (4.5-6.0); WHITE BLOOD COUNT (AUTO) 23.8 K/uL (4.3-11.0)
[2017-09-01 07:30] LABS: CALCIUM, SERUM 8.8 mg/dL (8.5-10.1); CREATININE 0.9 mg/dL (0.6-1.3); MAGNESIUM 1.6 mg/dL (1.8-2.4); PHOSPHORUS 2.8 mg/dL (2.5-4.9); POTASSIUM 3.3 mmol/L (3.5-5.1)
--- NOTE | 2017-09-01 07:30 | NUR ---
CRIMPING MACHINE OPERATOR NOTES PT IN BED, ASLEEP, RESPIRATIONS NORMAL, NO SIGN OF PAIN OR DISCOMFORT, VENT IN PLACE, GT FEEDING INFUSING WELL, F/C DRAINING WELL WITH CLEAR YELLOW URINE, KEPT [employer] LIMOUSINE BED, VITAL SIGNS STABLE.
[2017-09-01 08:00] VITALS: BP 133/66
[2017-09-01] MEDS: LEVOTHYROXINE SODIUM 100 MCG TABLET GT SCH (08:52)
[2017-09-01] MEDS: ASPIRIN 81 MG TAB.CHEW GT SCH (08:52)
[2017-09-01] MEDS: LACTOBACILLUS RHAMNOSUS GG 1 EACH CAP.SPRINK PO SCH ×2 (08:52→16:59)
[2017-09-01] MEDS: AMLODIPINE BESYLATE 10 MG TABLET GT SCH (08:53)
[2017-09-01] MEDS: ASCORBIC ACID 500 MG TABLET GT SCH (08:57)
[2017-09-01] MEDS: HYDROGEL DRESSING 90 GM TUBE TP SCH (08:57)
[2017-09-01] MEDS: HEPARIN SODIUM, PORCINE 5000 UNITS/1 ML VIAL SQ SCH ×2 (09:07→21:30)
[2017-09-01] MEDS: MUPIROCIN OINT 2% 22 GM TUBE SCH ×2 (09:14→21:32)
[2017-09-01] MEDS: CHLORHEXIDINE GLUCONATE 15 ML UDC MM SCH ×2 (09:57→21:30)
[2017-09-01] MEDS: Magnesium 1GM/D5W 100ML PREMIX 100 ML IV SCH ×2 (09:57→10:58)
[2017-09-01 12:00] VITALS: BP 141/69
[2017-09-01] MEDS ORDERED: CEFEPIME 1 GM VIAL IM SCH (13:00)
--- NOTE | 2017-09-01 13:00 | NUR ---
HANDY MAN NOTES PT IN BED, ASLEEP, EASY TO AROUSE, NOT IN DISTRESS, SEEN BY DR. HAMILTON, TURNED AND REPOSITIONED Q2 HRS, TOLERATING GT FEEDING WELL, KEPT LINUX [employer] ADMINISTRATOR BED.
[2017-09-01] MEDS: Potassium Chloride 10 MEQ in IV D5W 50 ML IV SCH ×2 (13:25→15:16)
[2017-09-01] MEDS: CEFEPIME 2 GM in IV D5W 100 ML IV SCH ×2 (14:37→21:19)
[2017-09-01 16:00] VITALS: BP 138/75
--- NOTE | 2017-09-01 18:27 | NUR ---
FILTER TANK OPERATOR NOTES PT IN BED, AWAKE, NO SIGN OF PAIN OR DISTRESS, VENT IN PLACE, GT FEEDING INFUSING WELL, TOLERATING WELL, TURNED AND REPOSITIONED Q2 HRS, KEPT CLEAN AND DRY, PM MEDS GIVEN, PM CARE RENDERED, ALL NEEDS ATTENDED.
--- NOTE | 2017-09-01 19:08 | NUR ---
VP SECURITIES NOTES RECEIVED NEW ORDER TO CHANGE FRANZ CATH, EXPLAINED PROCEDURE TO PT, NEW FRANZ CATH INSERTED ORDERED, PT TOLERATED PROCEDURE WELL.
--- NOTE | 2017-09-01 19:30 | NUR ---
SLEEP SCIENTIST INITIAL NOTES RECEIVED PATIENT AWAKE, A/OX1, NON-VERBAL, NODS YES OR NO. VENT DEPENDENT AC 14, TV 550, FIO2 40% PEEP 5. TRACH C/D/I. BRITANY PAIN OR DISCOMFORT. RESPIRATIONS EVEN AND UNLABORED. ON TELE MONITOR SR. SKIN WARM AND DRY TO TOUCH. GT PATENT AND INTACT, IN PLACE, NO RESIDUAL NOTED. WITH F/C PATENT AND INTACT, DRAINING BY GRAVITY, PER AM NURSE S/P F/C REPLACEMENT. ISOLATION PRECAUTIONS. HOB KEPT ELEVATED. SIDE RAILS UP AND LOCKED. BED KEPT AT LOWEST POSITION. CALL LIGHT KEPT WITHIN EASY REACH. WILL CONTINUE TO MONITOR.
[2017-09-01 20:00] VITALS: BP 133/76
[2017-09-01] MEDS: ACETAMINOPHEN 325 MG TABLET MC PRN (21:22)
[2017-09-02] VITALS: BP 135/77
[2017-09-02] MEDS: LABETALOL HCL (100MG) 100 MG TABLET GT SCH ×4 (00:01→17:12)
[2017-09-02] MEDS: IV NS 0.9% 1,000 ML IV PRN ×2 (00:37→17:13)
[2017-09-02 04:00] VITALS: BP 166/84
[2017-09-02] MEDS: VALPROIC ACID 250 MG/5 ML UDC GT SCH ×3 (05:30→21:09)
[2017-09-02] MEDS: CEFEPIME 2 GM in IV D5W 100 ML IV SCH ×3 (05:34→20:37)
--- NOTE | 2017-09-02 06:07 | NUR ---
RN BARBARA LUTZ, INFECTION CONTROL CALLED TO PUT PATIENT ON DROPLET ISOLATION WELL DUE TO CRE SPUTUM/RESPIRATORY. PRIMARY RN DIMITRIS NOTIFIED. INITIATED DROPLET ISOLATION
[2017-09-02 06:29] LABS: BASOPHILS # (AUTO) 0.1 /CMM (0.0-0.2); BASOPHILS % (AUTO) 0.3 % (0.0-2.0); EOSINOPHILS # (AUTO) 2.7 /CMM (0.0-0.7); EOSINOPHILS % (AUTO) 9.5 % (0.0-6.0); HEMATOCRIT 30 % (39-51); LYMPHOCYTES % (AUTO) 6.9 % (20.0-44.0); MEAN CORPUSCULAR HEMOGLOBIN 31 PG (26.0-33.0); MEAN CORPUSCULAR HGB CONC 34 g/dl (31.0-36.0); MEAN CORPUSCULAR VOLUME 90 fL (80-96); MONOCYTES # (AUTO) 2.5 /CMM (0.1-1.30); MONOCYTES % (AUTO) 8.8 % (2.0-12.0); NEUTROPHILS # (AUTO) 21.5 /CMM (1.8-8.9); NEUTROPHILS % (AUTO) 74.5 % (43.0-81.0); PLATELET COUNT (AUTO) 456 /CMM (150-450); RED BLOOD CELL COUNT(AUTO) 3.29 MIL/uL (4.5-6.0); WHITE BLOOD COUNT (AUTO) 28.8 K/uL (4.3-11.0)
[2017-09-02] MEDS: RENAL NOVASOURCE 1,000 ML BOTTLE GT PRN (06:33)
[2017-09-02 06:45] LABS: CALCIUM, SERUM 9.4 mg/dL (8.5-10.1); MAGNESIUM 1.9 mg/dL (1.8-2.4); PHOSPHORUS 2.6 mg/dL (2.5-4.9); POTASSIUM 3.7 mmol/L (3.5-5.1)
--- NOTE | 2017-09-02 07:16 | NUR ---
INNER TUBE CUTTER CLOSING NOTES NO SIGNIFICANT CHANGES OVERNIGHT. ALL NEEDS ANTICIPATED AND MET. NO RESPIRATORY DISTRESS NOTED. TOLERATING VENT SETTINGS. TOLERATING GTF. F/C PATENT AND INTACT, HEMATURIA SUBSIDING. SR ON TELE MONITOR. KEPT CLEAN AND DRY. TURNED AND REPOSITIONED Q2 AND PRN. WOUND TX ORDERED. SIDE RAILS UP AND LOCKED. BED KEPT AT LOWEST POSITION. CALL LIGHT KEPT WITHIN EASY REACH. CONTINUITY OF CARE ENDORSED TO AM NURSE.
--- NOTE | 2017-09-02 07:24 | NUR ---
RN NOTES RECEIVED PT IN STABLE CONDITION FROM WATCH TRAIN INSPECTOR.A&0X1,VENT/TRACH DEPENDENT, TOLERATING VENT SETTINGS NO SOB OR DISTRESS NOTED. FOE DRAINING TO GRAVITY. GTF AT 40ML/HR NO RESIDUAL NOTED. RH 18G IV SITE DRY AND INTACT WITH IVF AT 75ML/HR. BED LOCKED AND IN LOWEST POSITION, SIDE RAILS UPX3, CALL LIGHT WITHIN REACH, WILL CONT TO MONITOR.
[2017-09-02 08:00] VITALS: BP 138/77
[2017-09-02] MEDS: ASPIRIN 81 MG TAB.CHEW GT SCH (08:22)
[2017-09-02] MEDS: LACTOBACILLUS RHAMNOSUS GG 1 EACH CAP.SPRINK PO SCH ×2 (08:23→17:13)
[2017-09-02] MEDS: MUPIROCIN OINT 2% 22 GM TUBE SCH ×2 (08:23→21:15)
[2017-09-02] MEDS: ASCORBIC ACID 500 MG TABLET GT SCH (08:23)
[2017-09-02] MEDS: AMLODIPINE BESYLATE 10 MG TABLET GT SCH (08:23)
[2017-09-02] MEDS: LEVOTHYROXINE SODIUM 100 MCG TABLET GT SCH (08:23)
[2017-09-02] MEDS: HEPARIN SODIUM, PORCINE 5000 UNITS/1 ML VIAL SQ SCH ×2 (08:24→21:14)
[2017-09-02] MEDS: HYDROGEL DRESSING 90 GM TUBE TP SCH (08:24)
[2017-09-02] MEDS: ACETAMINOPHEN 325 MG TABLET MC PRN (09:17)
[2017-09-02] MEDS: CHLORHEXIDINE GLUCONATE 15 ML UDC MM SCH ×2 (09:19→21:09)
[2017-09-02 11:52] LABS: BAND % (MANUAL) 2 % (0.0-5.0); EOSINOPHILS % (MANUAL) 7 % (0-4); LYMPHOCYTES % (MANUAL) 7 % (16-48); MONOCYTES % (MANUAL) 2 % (0-11.0); MYELOCYTES % 1 % (0-0); NEUTROPHILS % (MANUAL) 81 (42-76)
[2017-09-02 12:00] VITALS: BP 166/77
[2017-09-02 16:00] VITALS: BP 163/87
--- NOTE | 2017-09-02 18:27 | NUR ---
RN NOTES PT REMAINED IN STABLE CONDITION THROUGHOUT THE SHIFT, TOLERATING VENT SETTINGS NO SOB OR DISTRESS NOTED. PT TOLERATED GTF NO RESIDUAL NOTED. ALL NEEDS MET, PT CLEANED/TURNED/REPOSITIONED/SUCTIONED. NO SIGNIFICANT CHANGES NOTED. BED LOCKED AND IN LOWEST POSITION, CALL LIGHT WITHIN REACH, SIDE RAILS UPX3, WILL ENDORSE TO ONCOMING SHIFT.
[2017-09-02 20:00] VITALS: BP 170/87
--- NOTE | 2017-09-02 20:30 | NUR ---
RN NOTES Loyd Coe from infection contol called to verify that resp culture is resistant to imipenem.
[2017-09-02] MEDS: IBUPROFEN 400 MG TABLET GT PRN (21:13)
[2017-09-03] VITALS: BP 135/73
[2017-09-03] MEDS: LABETALOL HCL (100MG) 100 MG TABLET GT SCH ×4 (00:38→17:10)
[2017-09-03 04:00] VITALS: BP 155/70
[2017-09-03] MEDS: RENAL NOVASOURCE 1,000 ML BOTTLE GT PRN (05:54)
[2017-09-03] MEDS: VALPROIC ACID 250 MG/5 ML UDC GT SCH ×2 (05:54→12:00)
[2017-09-03] MEDS: CEFEPIME 2 GM in IV D5W 100 ML IV SCH ×2 (06:13→13:03)
[2017-09-03 06:33] LABS: BASOPHILS # (AUTO) 0.1 /CMM (0.0-0.2); BASOPHILS % (AUTO) 0.5 % (0.0-2.0); EOSINOPHILS # (AUTO) 2.5 /CMM (0.0-0.7); EOSINOPHILS % (AUTO) 9.6 % (0.0-6.0); HEMATOCRIT 28 % (39-51); HEMOGLOBIN 9.4 g/dL (13.5-17.5); LYMPHOCYTES % (AUTO) 7.6 % (20.0-44.0); MEAN CORPUSCULAR HEMOGLOBIN 31 PG (26.0-33.0); MEAN CORPUSCULAR HGB CONC 34 g/dl (31.0-36.0); MEAN CORPUSCULAR VOLUME 90 fL (80-96); MONOCYTES # (AUTO) 2.6 /CMM (0.1-1.30); MONOCYTES % (AUTO) 9.8 % (2.0-12.0); NEUTROPHILS # (AUTO) 18.9 /CMM (1.8-8.9); NEUTROPHILS % (AUTO) 72.5 % (43.0-81.0); PLATELET COUNT (AUTO) 376 /CMM (150-450); RDW COEFFICIENT OF VARIATION 16.3 (11.5-15.0); RED BLOOD CELL COUNT(AUTO) 3.06 MIL/uL (4.5-6.0); WHITE BLOOD COUNT (AUTO) 26.1 K/uL (4.3-11.0)
[2017-09-03 06:53] LABS: CALCIUM, SERUM 8.9 mg/dL (8.5-10.1); CREATININE 1.2 mg/dL (0.6-1.3); MAGNESIUM 1.8 mg/dL (1.8-2.4); PHOSPHORUS 3.1 mg/dL (2.5-4.9); POTASSIUM 3.2 mmol/L (3.5-5.1)
[2017-09-03 07:17] LABS: THYROID STIMULATING HORMONE 1.472 uIU/mL (0.358-3.74)
[2017-09-03 08:00] VITALS: BP 157/82
[2017-09-03] MEDS: LEVOTHYROXINE SODIUM 100 MCG TABLET GT SCH (08:12)
[2017-09-03] MEDS: ASPIRIN 81 MG TAB.CHEW GT SCH (08:12)
[2017-09-03] MEDS: LACTOBACILLUS RHAMNOSUS GG 1 EACH CAP.SPRINK PO SCH ×2 (08:12→17:09)
[2017-09-03] MEDS: ASCORBIC ACID 500 MG TABLET GT SCH (08:12)
[2017-09-03] MEDS: HYDROGEL DRESSING 90 GM TUBE TP SCH (08:13)
[2017-09-03] MEDS: Z GUARD REMEDY 2 OZ OINT TP PRN (08:13)
[2017-09-03] MEDS: AMLODIPINE BESYLATE 10 MG TABLET GT SCH (08:13)
[2017-09-03] MEDS: MUPIROCIN OINT 2% 22 GM TUBE SCH (08:14)
[2017-09-03] MEDS: HEPARIN SODIUM, PORCINE 5000 UNITS/1 ML VIAL SQ SCH (08:14)
[2017-09-03] MEDS: CHLORHEXIDINE GLUCONATE 15 ML UDC MM SCH (09:28)
[2017-09-03] MEDS: IV NS 0.9% 1,000 ML IV PRN (10:13)
[2017-09-03 11:21] LABS: EOSINOPHILS % (MANUAL) 8 % (0-4); LYMPHOCYTES % (MANUAL) 15 % (16-48); MONOCYTES % (MANUAL) 7 % (0-11.0); NEUTROPHILS % (MANUAL) 70 (42-76)
[2017-09-03] MEDS: POTASSIUM CHLORIDE 20 MEQ POWDER PACKET NG SCH ×2 (11:56→13:03)
[2017-09-03 12:00] VITALS: BP 145/79
[2017-09-03 17:10] VITALS: BP 143/76
--- NOTE | 2017-09-03 17:30 | NUR ---
NURSERYMAN ASSISTANT NOTE PT DISCHARGED TO [facility]. REPORT GIVEN TO FER MCCURDY @ [id number]. PT TRANSPORTED VIA AMBULANCE . DC INSTRUCTIONS GIVEN TO EMT. CALLED BRIAN TO REPORT DC TO [facility] AND GAVE INFORMATION. REMOVED ID BAND . DID NOT REMOVED IV DUE TO CONTINUATION OF ABX. PICTURES TAKE AND PUT IN CHART. PT CLEAN AND DRY. WOUND CARE CARRIED OUT. EXITCARE DONE.
[2017-09-04 12:12] LABS: *SPE A/G RATIO 0.8 (0.7-1.7); *SPE ALBUMIN 2.6 g/dL (2.9-4.4); *SPE ALPHA-1-GLOBULIN 0.2 g/dL (0.0-0.4); *SPE BETA GLOBULIN 0.8 g/dL (0.7-1.3); *SPE GLOBULIN, TOTAL 3.3 g/dL (2.2-3.9); *SPE M-SPIKE Not Observed g/dL (Not Observed); *SPE PROTEIN TOTAL 5.9 g/dL (6.0-8.5); *SPEGAMMA GLOBULIN 1.3 g/dL (0.4-1.8)
== END 2017-09-03 17:37 | DRG 130 ==
LOC: ER 19:36 → TELE-TD 21:32 → TELE1 08-30 13:01
PROVIDERS: ADMIT Nurse Practitioner Acute Care; ATTEND Nurse Practitioner Acute Care
PROC: 5A1955Z Respiratory Ventilation, Greater than 96 Consecutive Hours (ICD-10-PCS; principal; 2017-08-27)
DX: J95.851 Ventilator associated pneumonia (principal); N17.0 Acute kidney failure with tubular necrosis; J96.21 Acute and chronic respiratory failure with hypoxia; A41.9 Sepsis, unspecified organism; R53.2 Functional quadriplegia; R13.10 Dysphagia, unspecified; Z99.11 Dependence on respirator [ventilator] status; Z93.0 Tracheostomy status; D68.59 Other primary thrombophilia; E11.22 Type 2 diabetes mellitus with diabetic chronic kidney disease; E87.1 Hypo-osmolality and hyponatremia; Z93.1 Gastrostomy status; E03.9 Hypothyroidism, unspecified; E78.5 Hyperlipidemia, unspecified; E83.52 Hypercalcemia; E86.0 Dehydration; E87.6 Hypokalemia; G40.909 Epilepsy, unspecified, not intractable, without status epilepticus; I25.10 Atherosclerotic heart disease of native coronary artery without angina pectoris; R74.0 Nonspecific elevation of levels of transaminase and lactic acid dehydrogenase [LDH]; D47.3 Essential (hemorrhagic) thrombocythemia; D64.9 Anemia, unspecified; Z87.01 Personal history of pneumonia (recurrent); Z87.440 Personal history of urinary (tract) infections; Z86.19 Personal history of other infectious and parasitic diseases; Z22.322 Carrier or suspected carrier of Methicillin resistant Staphylococcus aureus; B37.49 Other urogenital candidiasis; N39.0 Urinary tract infection, site not specified; Y84.8 Other medical procedures as the cause of abnormal reaction of the patient, or of later complication, without mention of misadventure at the time of the procedure; K21.9 Gastro-esophageal reflux disease without esophagitis; Y92.129 Unspecified place in nursing home as the place of occurrence of the external cause; I12.9 Hypertensive chronic kidney disease with stage 1 through stage 4 chronic kidney disease, or unspecified chronic kidney disease; N18.9 Chronic kidney disease, unspecified; Z79.899 Other long term (current) drug therapy
CPT/HCPCS: 31720; 36415; 36600; 71010-TC; 80048-TC; 80053-TC; 80061-TC; 80076-TC; 80164-TC; 80202-TC; 81000-TC; 82728-TC; 82746; 83540-TC; 83605-TC; 83735-TC; 84100-TC; 84132-TC; 84155; 84165; 84443-TC; 84484-TC; 85025-TC; 85652-TC; 85730-TC; 87040-TC; 87070-TC; 87081-TC; 87086-TC; 87186-TC; 93307-TC; 94003-TC; 94760-TC; A4216; A4606; A6248; A6253; A6402; A6403; J0692; J1450; J1644; J2185; J3370; J3475; J3480; J7030; J7040; J7060; Z7610